=== PATIENT | female | born 1975 | race Caucasian/White ===

== ENCOUNTER 2024-12-02 12:27 | Outpatient (OUT) | payer MEDICAID, SELFPAY ==
--- OUTSIDE RECORDS SUMMARY | 2024-12-02 12:34 | XMS_ITS | Clinical Summary ---
Author Organization [facility] [employer] [facility]formerly [employer] Address [facility] [id number] [address] [place] [address] Care Team Providers Care Family Psychologist Name Role Phone Unavailable Primary Care Provider Unavailabl e Social History Tobacco Use Types Packs/Day Years Used Date Smoking Tobacco: Never Assessed Childcare Answer Date Recorded Childcare Unknown 08/13/2018 Employment Answer Date Recorded Employment Unknown 08/13/2018 Comments Unknown Sex and Gender Information Value Date Recorded Sex Assigned at Not on file Legal Sex Female 2:47 AM EDT Gender Identity Not on file Sexual Orientation Not on file Plan of Treatment Not on file Medical Devices Not on file
--- OUTSIDE RECORDS SUMMARY | 2024-12-02 12:34 | XMS_ITS | Clinical Summary ---
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
--- NOTE | 2024-12-02 12:37 | XR_ITS ---
The [address] [address] Patient Name: JEFF QUEVEDO MRN: [id number] date: 1975 Sex: F Assigned Patient Location: [facility] Current Patient Location: [facility] Accession/Order Number: [id number] Exam Date: 12/02/2024 12:40 Report Date: 12/02/2024 21:03 At the request of: NICHOL ORTEZ Procedure: XR cervical spine 5V XR cervical spine 5V 12/02/2024 12:50 PM SIGNS AND SYMPTOMS: ^Cervicalgia M54.2 PROTOCOLS: 5 views of the cervical spine COMPARISON: None FINDINGS: The bones are in anatomic alignment. There is preservation of the vertebral body heights. There is anterior and intervertebral fusion at C5-C6. There is mild disc height loss at C4-C5 and C6-C7. There is anterior osteophyte formation at C3-C4, C4-C5, and C6-C7. Uncovertebral joint degenerative change. Neural foraminal narrowing greatest on the right at C4-C5. The atlantoaxial joint is preserved. There is no fracture or destructive lesion. XR/XR cervical spine 5V IMPRESSION: No fracture or subluxation. Uncomplicated anterior and intervertebral fusion at C5-C6. Degenerative changes are noted greatest at C4-C5. Impression dictated by: Ranulfo Ramirez M.D. 12/02/2024 9:03 PM Dictation Location: [place] [address] Electronically authenticated by: [id number] Y Date: 12/02/2024 21:03
== END 2024-12-02 12:28 | disposition home or self-care (01) ==
LOC: RAD 12:32
PROVIDERS: PCP Nurse Practitioner; Visit Provider Nurse Practitioner
DX: M54.2 Cervicalgia (principal); M43.22 Fusion of spine, cervical region
CPT/HCPCS: 72050

== ENCOUNTER 2024-12-16 11:27 | Outpatient (OUT) | payer MEDICAID, SELFPAY ==
--- NOTE | 2024-12-16 11:33 | XR_ITS ---
The [place] [id number] Patient Name: JEFF QUEVEDO MRN: [id number] date: 1975 Sex: F Assigned Patient Location: [facility] Current Patient Location: [facility] Accession/Order Number: [id number] Exam Date: 12/16/2024 11:38 Report Date: 12/16/2024 17:13 At the request of: NICHOL ORTEZ Procedure: XR chest 2V PA AND LATERAL CHEST: CLINICAL HISTORY: Cough, Wheezing COMPARISON: 02/01/2020 FINDINGS: Unremarkable cardiomediastinal silhouette. Left lung is clear. There is focal parenchymal opacity likely within the right middle lobe. No effusion or pneumothorax. XR/XR chest 2V IMPRESSION: RIGHT MIDDLE LOBE AIRSPACE OPACITY NOTED, FOLLOW-UP TO RESOLUTION RECOMMENDED. Impression dictated by: Jimmy Balderrama M.D. 12/16/2024 5:13 PM Dictation Location: [place] [address] Electronically authenticated by: [id number] Y Date: 12/16/2024 17:13
== END 2024-12-16 11:28 | disposition home or self-care (01) ==
LOC: LAB 11:28 → RAD 11:30
PROVIDERS: PCP Nurse Practitioner; Visit Provider Nurse Practitioner
DX: R06.2 Wheezing (principal); R05.9 Cough, unspecified
CPT/HCPCS: 71046

== ENCOUNTER 2025-01-15 15:32 | Outpatient (OUT) | payer MEDICAID, SELFPAY ==
--- NOTE | 2025-01-15 15:44 | XR_ITS ---
The [address] [address] Patient Name: JEFF QUEVEDO MRN: [id number] date: 1975 Sex: F Assigned Patient Location: [facility] Current Patient Location: [facility] Accession/Order Number: [id number] Exam Date: 01/15/2025 15:38 Report Date: 01/15/2025 17:33 At the request of: NICHOL ORTEZ Procedure: XR chest 2V PA AND LATERAL CHEST: CLINICAL HISTORY: Pneumonia, J18.9 COMPARISON: 12/16/2024 FINDINGS: Unremarkable cardiomediastinal. Lungs clear. No effusion or pneumothorax. XR/XR chest 2V IMPRESSION: NO ACUTE CARDIOPULMONARY ABNORMALITY. Impression dictated by: Jimmy Balderrama M.D. 01/15/2025 5:33 PM Dictation Location: [place] [address] Electronically authenticated by: [id number] Y Date: 01/15/2025 17:33
== END 2025-01-15 15:33 | disposition home or self-care (01) ==
LOC: RAD 15:33
PROVIDERS: PCP Nurse Practitioner; Visit Provider Nurse Practitioner
DX: J18.9 Pneumonia, unspecified organism (principal)
CPT/HCPCS: 71046